=== PATIENT | female | born 1945 | race Caucasian/White ===

== ENCOUNTER 2022-08-14 12:53 | Inpatient (IN) | payer BC ==
[~2022-08-14] VITALS: Ht 160 cm; Wt 68.0 kg
[2022-08-14 13:45] LABS: BASOPHILS ABSOLUTE AUTO 0.05 K/mm3 (0.00-0.23); BASOPHILS PERCENT AUTO 1 % (0-2); EOSINOPHILS ABSOLUTE AUTO 0.03 K/mm3 (0.00-0.68); EOSINOPHILS PERCENT AUTO 0 % (0-6); Hematocrit 31.8 % (33.0-51.0); Hemoglobin 9.9 g/dL (11.5-16.0); IMMATURE GRAN ABSOLUTE AUTO 0.02 K/mm3 (0.00-0.10); IMMATURE GRAN PERCENT AUTO 0 % (0-1); LYMPHOCYTES ABSOLUTE AUTO 1.49 K/mm3 (0.84-5.20); LYMPHOCYTES PERCENT AUTO 15 % (21-46); MONOCYTES ABSOLUTE AUTO 0.78 K/mm3 (0.16-1.47); MONOCYTES PERCENT AUTO 8 % (4-13); Mean Corpuscular HGB Conc 31.1 g/dL (31.5-36.5); Mean Corpuscular Volume 74 fL (80-100); Mean Platelet Volume 10.2 fL (9.1-12.4); NEUTROPHILS ABSOLUTE AUTO 7.82 K/mm3 (1.96-9.15); NEUTROPHILS PERCENT AUTO 77 % (41-73); Platelet Count 386 K/mm3 (150-400); RDW Coefficient Variation 15.7 % (11.7-14.2); RDW Standard Deviation 41.6 fL (35.1-46.3); White Blood Cell Count 10.19 K/mm3 (4.00-11.30)
[2022-08-14 14:13] LABS: Albumin, Blood 3.7 g/dL (3.4-5.0); Albumin/Globulin Ratio 0.9 (0.8-1.8); Bilirubin, Total 0.9 mg/dL (0.1-1.0); Bun/Creatinine Ratio 24.6 (12.0-20.0); Calcium, Blood 9.1 mg/dL (8.5-10.1); Creatinine, Blood 0.65 mg/dL (0.40-1.00); Globulin, Blood 3.9 g/dL (2.2-4.0); Potassium, Blood 3.4 mmol/L (3.5-5.5); Total Protein, Blood 7.6 g/dL (6.4-8.2)
[2022-08-14 14:47] LABS: Influenza A, PCR NEGATIVE (NEGATIVE); Influenza B, PCR NEGATIVE (NEGATIVE); Resp Syncytial Virus, PCR NEGATIVE (NEGATIVE); SARS-Cov-2 (COVID-19) PCR, MMC NEGATIVE (NEGATIVE)
[2022-08-14 17:47] LABS: CPK Creatine Kinase 62 U/L (26-193)
--- NOTE | 2022-08-14 19:32 | NUR ---
REPORT RECEIVED FROM ANIBAL BERMAN FROM ER. PT ARRIVED TO ROOM VIA GURNEY AND TX TO BED INDEPENDENTLY. PT DENIED SOB, CP ON ARRIVAL. PT ORIENTED TO ROOM/CALL LIGHT/FALL PRECAUTIONS. NON SKID SOCKS PLACED ON PT. PT HAS POTASSIUM CHLORIDE RUNNING VIA IV. PT PLACED ON TELE WITH REPORT OF NSR AT 97. PT EDUCATED ON TELE USE. REPORTED TO OZRAIDA BERMAN.
[2022-08-14 20:26] LABS: Source, Urine Clean Catch
[2022-08-14 20:30] LABS: Appearance, Urine Clear (Clear); Bilirubin, Urine Neg (Neg); Blood, Urine Neg (Neg); Glucose Qualitative, Urine Neg (Neg); Ketones, Urine Neg (Neg); Leukocyte Esterase, Urine Neg (Neg); Nitrite, Urine Neg (Neg); Protein, Urine Neg (Neg); Specific Gravity, Urine 1.015 (1.003-1.022); Urobilinogen, Urine NORM (Normal)
[2022-08-14 20:37] LABS: Color, Urine Pale Yellow (P-Yellow)
[2022-08-15 00:55] LABS: BASOPHILS ABSOLUTE AUTO 0.05 K/mm3 (0.00-0.23); BASOPHILS PERCENT AUTO 1 % (0-2); EOSINOPHILS ABSOLUTE AUTO 0.06 K/mm3 (0.00-0.68); EOSINOPHILS PERCENT AUTO 1 % (0-6); Hematocrit 30.6 % (33.0-51.0); Hemoglobin 9.6 g/dL (11.5-16.0); IMMATURE GRAN ABSOLUTE AUTO 0.03 K/mm3 (0.00-0.10); IMMATURE GRAN PERCENT AUTO 0 % (0-1); LYMPHOCYTES ABSOLUTE AUTO 1.27 K/mm3 (0.84-5.20); LYMPHOCYTES PERCENT AUTO 13 % (21-46); MONOCYTES ABSOLUTE AUTO 1.03 K/mm3 (0.16-1.47); MONOCYTES PERCENT AUTO 10 % (4-13); Mean Corpuscular HGB 22.9 pg (26.0-34.0); Mean Corpuscular HGB Conc 31.4 g/dL (31.5-36.5); Mean Corpuscular Volume 73 fL (80-100); Mean Platelet Volume 9.5 fL (9.1-12.4); NEUTROPHILS ABSOLUTE AUTO 7.62 K/mm3 (1.96-9.15); NEUTROPHILS PERCENT AUTO 76 % (41-73); Platelet Count 348 K/mm3 (150-400); RDW Coefficient Variation 15.5 % (11.7-14.2); RDW Standard Deviation 40.2 fL (35.1-46.3); Red Blood Cell Count 4.19 M/mm3 (3.80-5.20); White Blood Cell Count 10.06 K/mm3 (4.00-11.30)
[2022-08-15 01:13] LABS: Albumin, Blood 3.4 g/dL (3.4-5.0); Albumin/Globulin Ratio 0.9 (0.8-1.8); Bilirubin, Total 0.7 mg/dL (0.1-1.0); Bun/Creatinine Ratio 19.9 (12.0-20.0); Calcium, Blood 8.9 mg/dL (8.5-10.1); Creatinine, Blood 0.7 mg/dL (0.40-1.00); Globulin, Blood 3.6 g/dL (2.2-4.0); Potassium, Blood 3.5 mmol/L (3.5-5.5)
--- NOTE | 2022-08-15 04:40 | NUR ---
SHIFT SUMMARY PT A&O X 4- [facility] THAT ADMISSION NEEDED COMPLETED- PT C/O IV PAINFUL D/T POTASSIUM INFUSING STARTED NS CONCURRENT TO REDUCE THE PAIN- PT REPORTED DECREASED BURNING AT IV SITE-PT UP INDEPENDENT TO BSC, URINE COLLECTED AND SENT TO LAB- 0050 CALL FROM [facility] WITH CRITICAL TROPONIN 179- STOPPED IV POTASSIUM INFUSION WITH 50ML LEFT IN IV BAG TO INFUSE- CALL LIGHT WITHIN REACH, BED LOW POSITION
--- NOTE | 2022-08-15 16:58 | NUR ---
SUMMARY- PT A/O X4, INDEPENDANT IN ROOM. OXYGEN 3L NC. [address] DONE THIS AM, NOAH AT BEDSIDE TO REMOVE L MID THORAX DRAIN #1. LEFT DRAIN #[address]. PT HAS BEEN COUGHING LG AMOUNTS OF GREENISH SPUTUM INTO EMISIS BAG. LUNG L SIDE SCATTERED COARSE, DIM BASES. PLANS TO GO BACK HOME AND CONT TO SMOKE CIGARETTES AND DRINK ETOH. REFUSING NICOTINE PATCH- STATING IT DOES NO GOOD. PT ON TELE, SR 80'S. CONT PULSE OX 94-96%. NEWLY DC DM, DIABETIC TEACHING PERFORMED BY DIETITIAN, PT STATES HE WILL ATTEMPT CHANGES BUT CANT PROMISE HE WILL BE ABLE TO CHANGE EVERYTHING ALL AT ONCE. RESISTANT TO LIFESTYLE CHANGE TEACHING. STARTED ON METFORMIN. PLAN FOR DR ZAMORA TO REEVAL LUNG STATUS IN AM; AM CXR ORDERED. CHRONIC PAIN IN R SHOULDER AND L CT SITS CONTROLLED WITH PERCOCET THIS AM.
--- NOTE | 2022-08-15 17:09 | NUR ---
SUMMARY- PT A/O X3, MILD CONFUSION AND FORGETFULNESS. PT HAS HIGH ANXIETY RELATED TO HOSP STAY AND LIFE ISSUES- IE RECENT BANKRUPSY...FORGETFUL THAT SHE IS PULLING OFF TELE LEADS, HAVING TO BE REPLACED APPROX Q1-2 HOURS. PT GETS UP TO BEDSIDE COMMODE TO VOID INDEPENDANT. LUNGS CLEAR. BLE EDEMA +1, DOWN SICNIFICANTLY FROM ADMIT. TELE SR 80'S. ELEVATED BP THIS AM, GIVEN AM LISINOPRIL AND RECHECKED BP AFTERNOON, REMAINED ELEVATED WITH SBP 178, MEDICATED WITH HYDRALAZINE AND CALLED DR YAN TO EVAL BP MEDS AND ALSO REQUESTED SOMETHING FOR ANXIETY. MEDICATED WITH ATARAX, WHICH WAS HELPFUL TO AID PT IN CALMING AND TAKING A NAP. PT TOLERATING FOOD AND FLUIDS. TROP REMAINS ELEVATED AT THE SAME LEVEL OF 178, DID NOT CALL THIS IS UNCHANGED FROM PREVIOUS #.
--- NOTE | 2022-08-16 04:48 | NUR ---
SHIFT SUMMARY PT LAYING IN BED - BED SIDE REPORT DONE WHICH INCLUDED PT- PT REPORTS FEELING BETTER, DENIES CHEST PAIN, EDEMA DECREASED- PT REPORTED HAVING INCREASED ANXIETY TODAY AND LAYING IN HOSPITAL BED IS INCREASING THE ANXIETY- PT REQUEST ATARAX - NOTIFIED PT IT CAN BE GIVEN AFTER 0 - PT STATED UNDERSTANDING- PT CHANGED MIND AND DECIDED SHE DIDN'T NEED ATARAX AT THIS TIME- GAVE HYDRALAZINE FOR HYPERTENSION- PT BP DECREASED- PT TOLERATED WELL- PT UP TO BSC INDEPENDLY WITHOUT C/O SOB
[2022-08-16 06:10] LABS: Albumin, Blood 3.3 g/dL (3.4-5.0); Anion Gap 7 mmol/L (6-16); Blood Urea Nitrogen 17 mg/dL (8-24); Bun/Creatinine Ratio 22.4 (12.0-20.0); CO2, Blood 26 mmol/L (21-32); Calcium, Blood 9.2 mg/dL (8.5-10.1); Chloride, Blood 108 mmol/L (98-108); Creatinine, Blood 0.76 mg/dL (0.40-1.00); Glomerular Filtration Rate 81 (60-); Glucose, Blood 101 mg/dL (70-99); Phosphorus, Blood 4.9 mg/dL (2.5-4.9); Potassium, Blood 3.7 mmol/L (3.5-5.5); Sodium, Blood 141 mmol/L (136-145)
--- NOTE | 2022-08-16 18:00 | NUR ---
Received report from ongoing nurse. Pt awake and walking in the room. Pt included in bedside report. Pt alert and oriented. Will continue to monitor.
[2022-08-17 05:17] LABS: BASOPHILS ABSOLUTE AUTO 0.05 K/mm3 (0.00-0.23); BASOPHILS PERCENT AUTO 1 % (0-2); EOSINOPHILS ABSOLUTE AUTO 0.16 K/mm3 (0.00-0.68); EOSINOPHILS PERCENT AUTO 2 % (0-6); Hematocrit 30.3 % (33.0-51.0); Hemoglobin 9.4 g/dL (11.5-16.0); IMMATURE GRAN ABSOLUTE AUTO 0.01 K/mm3 (0.00-0.10); IMMATURE GRAN PERCENT AUTO 0 % (0-1); LYMPHOCYTES ABSOLUTE AUTO 1.58 K/mm3 (0.84-5.20); LYMPHOCYTES PERCENT AUTO 20 % (21-46); MONOCYTES PERCENT AUTO 14 % (4-13); Mean Corpuscular HGB 22.7 pg (26.0-34.0); Mean Corpuscular Volume 73 fL (80-100); NEUTROPHILS PERCENT AUTO 63 % (41-73); Platelet Count 338 K/mm3 (150-400); RDW Coefficient Variation 15.8 % (11.7-14.2); RDW Standard Deviation 41.6 fL (35.1-46.3); Red Blood Cell Count 4.14 M/mm3 (3.80-5.20)
[2022-08-17 05:41] LABS: Albumin, Blood 3.2 g/dL (3.4-5.0); Anion Gap 2 mmol/L (6-16); Blood Urea Nitrogen 17 mg/dL (8-24); Bun/Creatinine Ratio 23.9 (12.0-20.0); CHOL/HDL RATIO 4.5; CO2, Blood 30 mmol/L (21-32); Chloride, Blood 107 mmol/L (98-108); Cholesterol 191 mg/dL (50-200); Creatinine, Blood 0.71 mg/dL (0.40-1.00); Glomerular Filtration Rate 88 (60-); Glucose, Blood 93 mg/dL (70-99); HDL Cholesterol 42 mg/dL (>39); LDL/HDL RATIO 2.9; Low Density Lipoprotein Chol 122 mg/dL (0-110); Potassium, Blood 3.9 mmol/L (3.5-5.5); Sodium, Blood 139 mmol/L (136-145); Triglycerides 133 mg/dL (30-160); Very Low Density Lipoprot Chol 26 mg/dL (6-32)
--- NOTE | 2022-08-17 06:02 | NUR ---
Shift Summary PT was elevated systolic > 170 early in the shift. Given scheduled BP medications I checked 2 hours later and BP was improved, systolic in 140s. No c/o pain. Pt did say she had some anxiety but did not require PRN Atarax this shift. Step daughter spent the night in room with pt, OK'd by charge nurse. Pt slept well t/o the night. AOx4, independent in room, pleasant and cooperative.
--- NOTE | 2022-08-17 10:47 | NUR ---
REPORT RECIEVED FROM [facility] RN AT 1045. 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
--- NOTE | 2022-08-17 12:02 | NUR ---
ASSUMPTION OF CARE PT ARRIVED FROM TEAROOM HOST AT 1140 VIA HOSPITAL BED AND OCCOMPANED BY 2 RN. PT ON RA UPON ARRIVAL WITH SATS IN THE 90'S. TR BAND IN PLACE ON RIGHT WRIST, NO HEMOTOMA, REDNESS, OR SWELLING NOTED. ARM BOARD IN PLACE, PT REMINDED NOT TO BEND RIGHT WRIST. NO CHEST PAIN/PRESSURE UPON ARRIVAL TO UNIT. NO SOB/DYSPNEA NOTED UPON ARRIVAL. PT ORIENTED TO ROOM. CALL LIGHT WITHIN REACH, BED IN LOWEST POSITION.
[2022-08-17 14:50] LABS: Percent Saturation 6.6 % (15.0-50.0)
--- NOTE | 2022-08-17 15:47 | NUR ---
2ml removed from tr band
--- NOTE | 2022-08-17 16:35 | NUR ---
2ML REMOVED FROM TR BAND
--- NOTE | 2022-08-17 18:34 | NUR ---
SHIFT SUMMARY PT A/O X4 AND COOPERATIVE OF CARE SINCE ARRIVAL TO UNIT. BP'S LABILE. OTHER VSS SINCE ARRIVAL TO UNIT. NO REPORT OF CHEST PAIN/PRESSURE SINCE ARRIVAL TO UNIT. NO REPORT OF SOB/DYSPNEA SINCE ARRIVAL TO UNIT. PT ANXIOUS AT TIMES. TREATED PER EMAR. TR BAND ON RIGHT WRIST, DEFLATED. ARM BOARD IN PLACE.
[2022-08-17 23:13] LABS: Albumin, Blood 3.4 g/dL (3.4-5.0); Albumin/Globulin Ratio 0.9 (0.8-1.8); Bilirubin, Total 0.6 mg/dL (0.1-1.0); Calcium, Blood 9.1 mg/dL (8.5-10.1); Creatinine, Blood 0.86 mg/dL (0.40-1.00); Globulin, Blood 3.8 g/dL (2.2-4.0); Magnesium, Blood 2.2 mg/dL (1.6-2.4); Potassium, Blood 3.2 mmol/L (3.5-5.5); Total Protein, Blood 7.2 g/dL (6.4-8.2)
[2022-08-18 04:23] LABS: Hematocrit 29.5 % (33.0-51.0); Hemoglobin 9.4 g/dL (11.5-16.0)
[2022-08-18 04:48] LABS: Bun/Creatinine Ratio 30.6 (12.0-20.0); Creatinine, Blood 0.82 mg/dL (0.40-1.00); Potassium, Blood 3.6 mmol/L (3.5-5.5)
--- NOTE | 2022-08-18 06:07 | NUR ---
SHIFT SUMMARY PT AOX4, INDEPENDENT IN ROOM. PT CALLS OCCASIONALLY. PT HAS SHORT RUN OF SVT AND [address] WEEKS MADE AWARE BY THIS RN ON THE UNIT. ORDERS PER DR WEEKS FOR CBC AND MAG AND TO NOTIFY HOSPITALIST IF K+ IS NEEDED TO BE REPLACED. ORDERS OBTAINED INSTRUCTED AND PT MEDICATED PER EMAR FOR POTASSIUM AND CONSTIPATION. TELE DID NOT NOTIFY THIS RN OF ANY FURTHER OCCURENCES OF SVT OR VTACH. PT DENIES CP T/O EPISODES AND HAD NO C/O. BP STABLE T/O SHIFT. HR 60'S-70'S. R RADIAL SITE C/D WITH SMALL HEMATOMA FELT UNDER SITE. NO OBVIOUS BRUISING VISIBLE. THIS RN CONSISTENTLY REMINDED PT NOT TO USE WRIST T/O SHIFT D/T PT REPOSITIONING SELF AND BEING INDEPENDENT IN ROOM. PT VERBALIZES UNDERSTANDING. ARMBOARD IN PLACE AND PT EDUCATED ON ITS USE A SAFETY MEASURE FOR R RADIAL SITE. PT HAD DIFFICULTY SLEEPING T/O SHIFT.
--- NOTE | 2022-08-18 18:38 | NUR ---
PT SUMMARY: NO ACUTE CHANGE FOR THE SHIFT, PT HAS BEEN ALERT AND ORIENTED X4, INDEPENDENT IN THE ROOM, CALLS APPROPRIATELY, GETS ANXIOUS AT TIMES, VITALS STABLE, DENIES CHEST PAIN/PRESSURE. PT PLAN FOR ANGIO IN AM PT IS AWARE, TO KEEP NPO AFTER MIDNIGHT. RIGHT RADIAL SITE CDI WITH IMMOBILIZER IN PLACE. PT WAS MEDICATED ONCE WITH ATARAX FOR ANXIETY. ADEQUATE FOOD AND FLUID INTAKE. PT NOW RESTING IN BED CALL LIGHTS IN REACH WILL REPORT TO ONOCMING SHIFT
[2022-08-19 04:08] LABS: Bun/Creatinine Ratio 24.2 (12.0-20.0); Calcium, Blood 9.4 mg/dL (8.5-10.1); Creatinine, Blood 1.24 mg/dL (0.40-1.00); Potassium, Blood 4.3 mmol/L (3.5-5.5)
--- NOTE | 2022-08-19 07:28 | NUR ---
SHIFT SUMMARY PT AOX4, NPO AFTER 0000 EXCEPT ICE CHIPS. PT DENIED CP T/O SHIFT. DR ABDULLAHI NOTIFIED THIS AM OF ELEVATED TROPONIN AND PT DUE TO GO FOR ANGIO TODAY. NO FURTHER CHANGES THIS SHIFT.
--- NOTE | 2022-08-19 17:57 | NUR ---
PT SUMMARY: PT HAD SECOND ANGIO DONE TODAY HAD 2 MORE STENTS ON DISTAL RCA/PDA. RIGHT RADIAL ACCESS FULLY RECOVERED TR BAND OFF TRANSPARENT DRESSING IN PLACE PT HAD SOME BRUISING AROUND THE SITE HAD A LITTLE LEAK/HEMATOMA BELOW THE SITE 15 MINS AFTER PT GOT BACK FROM PROCEDURE PRESSURE HELD FOR 15 MINS AND WAS RESOLVED PT COMPLAINED OF PAIN 8/10 AFTER FENTANYL 125MCG WAS GIVEN AND WAS EFFECTIVE PT ALSO REQUESTED ATARAX FOR ANXIETY. PT APPEARS ANXIOUS AFTER THE PROCEDURE OTHER VILLAR NO C/O CHEST PAIN/PRESSURE. NO OTHER ISSUES REPORTED PT TO DISCHARGE IN AM IF STABLE. PT AMBULATING INDEPENDENTLY TO USE BEDSIDE COMMODE WITH NO ISSUES. NS RUNNING AT 125MLS/HR TO FINISH 1 BAG. PT NOW EATING DINNER WILL REPORT TO ONCOMING SHIFT
--- NOTE | 2022-08-20 05:49 | NUR ---
SHIFT SUMMARY AOX4. VSS. TELE NSR HR 75. REPORTS MILD PAIN 1/10 TO R WRIST, STATES TOLERABLE. BRUISING T/O R WRIST. TROP CRITICAL @5658, TRENDED DOWN FROM PREVIOUS TROP DRAW, DISCUSSED c CHARGE NURSE DANYELLE Iniguez DENIES CP OR DYSPNEA. EKG DONE THIS AM, PLACED IN FRONT OF CHART. POSSIBLE DC TODAY. CALL LIGHT IN REACH.
[2022-08-20 06:13] LABS: BASOPHILS ABSOLUTE AUTO 0.02 K/mm3 (0.00-0.23); BASOPHILS PERCENT AUTO 0 % (0-2); EOSINOPHILS ABSOLUTE AUTO 0.11 K/mm3 (0.00-0.68); EOSINOPHILS PERCENT AUTO 1 % (0-6); Hematocrit 27.1 % (33.0-51.0); Hemoglobin 8.5 g/dL (11.5-16.0); IMMATURE GRAN ABSOLUTE AUTO 0.02 K/mm3 (0.00-0.10); IMMATURE GRAN PERCENT AUTO 0 % (0-1); LYMPHOCYTES ABSOLUTE AUTO 1.24 K/mm3 (0.84-5.20); LYMPHOCYTES PERCENT AUTO 14 % (21-46); MONOCYTES ABSOLUTE AUTO 0.99 K/mm3 (0.16-1.47); MONOCYTES PERCENT AUTO 11 % (4-13); Mean Corpuscular HGB 23.2 pg (26.0-34.0); Mean Corpuscular HGB Conc 31.4 g/dL (31.5-36.5); Mean Corpuscular Volume 74 fL (80-100); NEUTROPHILS ABSOLUTE AUTO 6.38 K/mm3 (1.96-9.15); NEUTROPHILS PERCENT AUTO 73 % (41-73); Platelet Count 308 K/mm3 (150-400); RDW Standard Deviation 43.4 fL (35.1-46.3); Red Blood Cell Count 3.66 M/mm3 (3.80-5.20); White Blood Cell Count 8.76 K/mm3 (4.00-11.30)
[2022-08-20 06:34] LABS: Bun/Creatinine Ratio 27.3 (12.0-20.0); Creatinine, Blood 0.81 mg/dL (0.40-1.00)
[2022-08-20] MEDS ORDERED: ASPI81CH PO (11:31)
[2022-08-20] MEDS ORDERED: AMLO10 PO (11:31)
[2022-08-20] MEDS ORDERED: LIPITOR80 MG PO (11:31)
[2022-08-20] MEDS ORDERED: Carvedilol12.5 MG PO (11:31)
[2022-08-20] MEDS ORDERED: JARDIANCE10 MG PO (11:35)
[2022-08-20] MEDS ORDERED: FERSU300 PO (11:35)
[2022-08-20] MEDS ORDERED: ZESTRIL40 M1 PO (11:36)
[2022-08-20] MEDS ORDERED: MIRALAX17 GM PO (11:37)
[2022-08-20] MEDS ORDERED: SPIR25 PO (11:37)
[2022-08-20] MEDS ORDERED: TICA90TA PO (11:38)
[2022-08-20] MEDS ORDERED: PRASUGREL HCL10 MG PO (12:27)
--- NOTE | 2022-08-20 14:05 | NUR ---
PT DISCHARGE TO HOME WITH DISCHARGE ORDERS, PRESCRIPTION SENT TO [facility], PT WAS ASSISTED WITH GOOD RX FOR COUPONS. NO ACUTE CHANGE POST ANGIO FROM YESTERDAY VITALS HAS BEEN STABLE. PT HAS BEEN INDEPENDENT IN THE ROOM. DISCHARGE INSTRUCTIONS AND NEW MEDICATIONS DISCLOSED WITH THE PT, PT VERBALIZED UNDERSTANDING. RIGHT RADIAL SITE TRANSPARENT DRESSING CDI, BRUISING STILL VISIBLE, NO PAIN COMPLAINT. ALL BELONGINGS SENT WITH THE PT, ACCOMPANIED BY PCT VIA WHEELCHAIR
== END 2022-08-20 14:02 | disposition home or self-care (01) | DRG 246 ==
LOC: ER 12:53 → MEDS 12:54 → PCU 08-17 11:43
PROVIDERS: Family Medicine; Internal Medicine; Internal Medicine Cardiovascular Disease; Physician Assistant; ADMIT Internal Medicine
PROC: 027034Z Dilation of Coronary Artery, One Artery with Drug-eluting Intraluminal Device, Percutaneous Approach (ICD-10-PCS; principal; 2022-08-17)
PROC: 4A023N7 Measurement of Cardiac Sampling and Pressure, Left Heart, Percutaneous Approach (ICD-10-PCS; 2022-08-17)
PROC: B2111ZZ Fluoroscopy of Multiple Coronary Arteries using Low Osmolar Contrast (ICD-10-PCS; 2022-08-17)
PROC: B2151ZZ Fluoroscopy of Left Heart using Low Osmolar Contrast (ICD-10-PCS; 2022-08-17)
PROC: B240ZZ3 Ultrasonography of Single Coronary Artery, Intravascular (ICD-10-PCS; 2022-08-17)
PROC: 4A033BC Measurement of Arterial Pressure, Coronary, Percutaneous Approach (ICD-10-PCS; 2022-08-17)
PROC: 027135Z Dilation of Coronary Artery, Two Arteries with Two Drug-eluting Intraluminal Devices, Percutaneous Approach (ICD-10-PCS; 2022-08-19)
PROC: 4A033BC Measurement of Arterial Pressure, Coronary, Percutaneous Approach (ICD-10-PCS; 2022-08-19)
PROC: B240ZZ3 Ultrasonography of Single Coronary Artery, Intravascular (ICD-10-PCS; 2022-08-19)
PROC: B211YZZ Fluoroscopy of Multiple Coronary Arteries using Other Contrast (ICD-10-PCS; 2022-08-19)
DX: I11.0 Hypertensive heart disease with heart failure (principal); I21.A1 Myocardial infarction type 2; I50.43 Acute on chronic combined systolic (congestive) and diastolic (congestive) heart failure; D64.9 Anemia, unspecified; I25.10 Atherosclerotic heart disease of native coronary artery without angina pectoris; I25.5 Ischemic cardiomyopathy; I27.20 Pulmonary hypertension, unspecified; R77.8 Other specified abnormalities of plasma proteins; F41.9 Anxiety disorder, unspecified; I16.0 Hypertensive urgency; I08.0 Rheumatic disorders of both mitral and aortic valves; F12.10 Cannabis abuse, uncomplicated; Z20.822 Contact with and (suspected) exposure to COVID-19; Z87.891 Personal history of nicotine dependence; Z86.16 Personal history of COVID-19
CPT/HCPCS: 0241U; 36415; 71046; 76937; 80048; 80053; 80061; 80069; 81003; 82550; 82728; 83540; 83550; 83735; 83880; 84484; 85014; 85018; 85025; 85347; 92978; 93005; 93010; 93306; 93454; 93458; 93571; 94760; 96365; 96372; 96375; 96376; 99152; 99153; 99285-25; A9270; C1725; C1753; C1769; C1874; C1887; C1894; C9600; C9601; G0378; J0153; J0360; J1644; J1650; J1940; J2250; J3010; J3480; J7030; J7040; J7050; Q9967